=== PATIENT | male | born 1995 | race Caucasian/White ===

== ENCOUNTER 2019-06-17 18:49 | Inpatient (IN) | payer BC ==
[~2019-06-17] VITALS: Ht 188 cm; Wt 91.2 kg
[2019-06-17 18:54] VITALS: BP 133/71
[2019-06-17 22:21] VITALS: BP 148/81
[2019-06-17 23:00] VITALS: BP 116/75
[2019-06-18] VITALS (13 sets, daily range): BP systolic 99–115; BP diastolic 48–75
[2019-06-18] MEDS ORDERED: NOHOMEMEDICATIONS (00:35)
--- NOTE | 2019-06-18 03:38 | NUR ---
RECEIVED REPORT FROM BASKET BRAIDER. PT ARRIVED TO ROOM FROM PACU AROUND 0015. A&OX4. ADMISSION HX AND ASSESSMENT COMPLETED CHARTED. LEFT ARM/HAND DRESSING C/D/I. ICE PACK APPLIED TO LEFT UPPER EXTREMITY. LUE ELEVATED ON PILLOW. PT STATED PAIN WAS TOLERABLE. PT INSTRUCTED TO NOTIFY RN OF NEED FOR PAIN MEDS BEFORE IT GETS TOO PAINFUL. PT ATE BOXED LUNCH. TOLERATED WELL. NO N/V. VSS. PROGRESSING TOWARD POC GOALS. WILL CONTINUE TO MONITOR FURTHER.
[2019-06-18 05:48] LABS: ABSOLUTE NEUTROPHILS 7.1 thou/uL (1.4-8.2); BASOPHILS 0.1 % (0.0-2.0); EOSINOPHILS 0.4 % (0.0-3.0); HEMATOCRIT 43.8 % (42.0-52.0); LYMPHOCYTES 8.7 % (24.0-44.0); MCH 30.2 pg (26.0-34.0); MCHC 34.2 g/dL (28.0-37.0); MCV 88.2 fL (80.0-100.0); MONOCYTES 2.4 % (1.0-8.0); PLATELET COUNT 172 thou/uL (150-400); POLYS 88.4 % (36.0-66.0); RBC 4.96 mil/uL (4.50-6.00); RDW 13.2 % (10.5-14.5); WBC 8.1 thou/uL (4.0-11.0)
[2019-06-18 05:57] LABS: POTASSIUM 4.3 mmol/L (3.5-5.1)
--- NOTE | 2019-06-18 06:12 | O ---
[facility] [place] [address] OPERATIVE REPORT Name: LEWIS STOVALL Room #: 449-I ADM IN M.R.#: [id number] Admission: 06/17/19 ������������������ Attend Phys: Rivera Krishnamurthy MD Discharge: ������������������ Date of : 89 Report #: [id number] THIS REPORT FOR: //name// CC: [facility] physician/PCP Rivera Krishnamurthy DATE OF SERVICE: 06/17/2019 SERVICE: Orthopedics. FACILITY: [facility]. SURGEON: Rivera Krishnamurthy MD TRANSPORTATION DISPATCH MANAGER: Becky Arango NP. PREOPERATIVE DIAGNOSES: 1. Dog bite, left wrist. 2. Left wrist infection. POSTOPERATIVE DIAGNOSES: 1. Dog bite, left wrist. 2. Left wrist infection. PROCEDURE: Incision and drainage, left wrist laceration. COMPLICATIONS: None. DRAINS: None. SPECIMEN : Single fluids swab from puncture wound. ANESTHESIA: General. FINDINGS: Slight dishwater appearing fluid draining from the volar wrist wound without any signs of necrosis or gas gangrene. HISTORY: The patient is a 24-year-old gentleman who sustained a dog bite to his left wrist. He had progressing symptoms that were concerning for infection including loss of active range of motion, swelling, increased pain with passive finger extension and air and subcutaneous tissue with a concerning appearance of drainage from the volar wound. We had discussion about treatment options, risks, benefits, alternatives, and indications of surgical treatment. I did recommend surgical treatment based on the overall clinical picture and he gave full informed consent. He understood the risk of not operating with the potential for severe infection including sepsis as well as a significant [facility] [address] [place] [address] OPERATIVE REPORT Name: LEWIS STOVALL Room #: 449-I ADM IN M.R.#: [id number] Admission: 06/17/19 ������������������ Attend Phys: Rivera Krishnamurthy MD Discharge: ������������������ Date of : 95 Report #: [id number] permanent injury to the left arm. That is the reason he elected to undergo surgical treatment as recommended. Risks, benefits, alternatives, and indications were therefore reviewed. Risks include but not limited to pain, bleeding, persistence of infection, recurrence, injury to nerves or blood vessels, need for further surgery as well as complications related to anesthesia. PROCEDURE IN DETAIL: After left upper extremity was correctly identified in preoperative holding as the operative extremity, the patient was taken to the operating room where general anesthesia was induced without complication. He was padded appropriately. Prophylactic antibiotics were initiated in the Emergency Room and finished in the OR, he was padded appropriately. No tourniquet was utilized. A time-out procedure performed. The transverse laceration measured 8 mm in length. This was full thickness down through the fascia and there was some cloudy appearing fluid that was expressible. The wound was extended proximally ulnarly and then distally radially and explored bluntly. There was no necrosis present. There was a cavity in the subcutaneous tissue extending all the way to the radial border of the forearm about 6 cm radially and proximally. The entire cavity explored was therefore approximately 6 x 5 cm. Wound was copiously irrigated and then, a manual manipulation was performed to express the fluid and edema confirming that there were no pockets of purulence. There is no evidence of gas gangrene present or other evidence of necrotizing fasciitis because this was a dog bite wound and elected for packing it open and leaving the transverse portion open. The extended portion of the wound proximally was closed with 4-0 nylon after iodoform was loosely packed throughout the extent of the cavity. Sterile dressing was applied followed by a removable ulnar gutter splint. The patient was awakened from anesthesia and taken to recovery room in stable condition. No complications. All counts were recorded as correct. ��������������������������������������������� <ELECTRONICALLY SIGNED> ���������������������������������������� By: Rivera Krishnamurthy MD ��������������������������������������������� 06/18/19 0612 [id number] Rivera Krishnamurthy MD /nt
--- NOTE | 2019-06-18 12:43 | NUR ---
PT ADMITTED RELATED TO DOG BITE LEFT WRIST. CM REVIEWED CHART AND SPOKE WITH CARE TEAM. CM MET WITH PT AT BEDSIDE THIS DAY. PT IS A&O X4. CM MET WITH PT AT BEDSIDE THIS DAY. PT IS A&O X4. CM ROLE INTRODUCED. PT INDICATED HE LIVES ALONE IN A HOUSE WITH 3 STEPS TO ENTER AND NO STEPS INSIDE. 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 PT INDICATED NO DME OR HH HX. PT INDICATED HE PLANS TO RETURN HOME ONCE MEDICALLY STABLE. PT INDICATED HE HOPES TO DC HOME TODAY. CM TO FOLLOW INDICATED SHOULD ANY DC NEEDS ARISE.
--- NOTE | 2019-06-18 14:57 | NUR ---
code blue called & changed to EXPRESS MANAGER. See flowsheet
--- NOTE | 2019-06-18 15:50 | NUR ---
Nurse Sales And Marketing Associate spoke with patient in regard to discharge plan. Patient is wanting to leave hospital. Patient agreed to wait until physician rounded this evening. He will still want to leave even if physician wants him to stay. Patient reports he needs to get home to walk his dogs. Sales And Marketing Associate educated patient about the importance of completing antibiotics. Patient understood. Notified primary nurse of conversation.
--- NOTE | 2019-06-18 17:08 | NUR ---
dr. garcia indicated that pt is to dc home this day and return to the ed to get his last dose of iv unasyn this evening. dr. garcia spoke with dr. young and he is aware and agreeable. no other cm intervetnion indicated. case close.
--- NOTE | 2019-06-18 18:31 | NUR ---
ASSUMED CARE OF PATIENT AT 0715, PATIENT ALERT AND ORIENTED X 4. PATIENT UP AD EDIS. C/O PAIN WITH LEFT HAND, HYDROCODONE 1 TABLET GIVEN, WITH GOOD RELIEF. PATIENT HAS BEEN VERY ANGRY THIS SHIFT, DUE TO NEEDING TO BE DISCHARGED TO HOME DUE TO CARE OF HIS DOG. THIS RN NOTIFIED DR STEVE THIS AM, SPOKE TO MEGAN/INFORMATICA ARCHITECT, THEY WILL BE HERE THIS AFTERNOON TO SEE PATIENT AND DISCUSS THEIR PLANS. DR STEVE HERE SPOKE WITH PATIENT WITH THIS RN IN ROOM, PATIENT EXPLAINED THE PROCESS AND PATIENT WAS UPSET DUE TO HAVING TO SIGN AMA PAPERS, DR STEVE NOT WANTING TO DISCHARGE THE PATIENT, UNTIL ALL ANTIBIOTICS IV HAVE BEEN DONE. DR STEVE RETURNED TO THE UNIT, NOW HE WILL DISCHARGE PATIENT, PATIENT WILL RECEIVE 1600 DOSE FROM THIS RN, AND COME INTO THE ER FOR THE 2200 DOSE. ALL DISCHARGE PAPERWORK SENT WITH THE PATIENT AND EXPLAINED ALL INSTRUCTIONS.
== END 2019-06-18 18:36 | disposition home or self-care (01) | DRG 581 ==
LOC: ER 18:49 → TBA 22:23 → 4W 22:50
PROVIDERS: Emergency Medicine; ADMIT Orthopaedic Surgery Sports Medicine
PROC: 0J9H0ZZ Drainage of Left Lower Arm Subcutaneous Tissue and Fascia, Open Approach (ICD-10-PCS; principal; 2019-06-17)
DX: S61.552A Open bite of left wrist, initial encounter (principal); W54.0XXA Bitten by dog, initial encounter; Y93.89 Activity, other specified; Y92.89 Other specified places as the place of occurrence of the external cause; Y99.8 Other external cause status
CPT/HCPCS: 50010; 50101; 50386; 56526; 57091; 62110; 62900; 70005

== ENCOUNTER → 2019-06-18 | Outpatient (CLI) | payer BC ==
[~2019-06-18] MED LIST: NOHOMEMEDICATIONS
== END ==
LOC: ER 22:24
DX: S61.552A Open bite of left wrist, initial encounter (principal); W54.0XXA Bitten by dog, initial encounter; Y93.89 Activity, other specified; Y92.89 Other specified places as the place of occurrence of the external cause